=== PATIENT | female | born 1965 | race Caucasian/White ===

== ENCOUNTER 2021-05-15 17:15 | Emergency (ER) | payer MEDICARE ==
--- NOTE | 2021-05-15 18:10 | EDM.PDOC ---
ED HPI GENERAL MEDICAL PROBLEM - General Chief Complaint: General Stated Complaint: I & R CRITIAL HIGH Time Seen by Provider: 05/15/21 18:00 Source of Information: Reports: Patient History Limitations: Reports: No Limitations - History of Present Illness INITIAL COMMENTS - FREE TEXT/NARRATIVE: 55-year-old female with chronic anticoagulation, she has been on Coumadin for 33 years presents with a very high pro time of over 100 seconds. She has been on Bactrim DS for the last 5 days for UTI, symptoms have resolved. She takes 15 mg of Coumadin daily and checks her own pro time. Because of the antibiotic, she checked her pro time this morning and it was high. She went into the clinic and it was confirmed so they sent her to the emergency room. She has some mild stomach discomfort, a mild headache but no bruising increased bruising, hematuria, nosebleeds or other hemorrhage issues at this time. No recent trauma. She takes her Coumadin at 4 to 5:00 in the afternoon, she has not taken it today. Onset: Unknown/Unsure Associated Symptoms: Reports: Headaches (Mild diffuse headache), Other (Mild generalized abdominal discomfort). Denies: Chest Pain, Cough, Diaphoresis, Loss of Appetite, Malaise, Nausea/Vomiting, Shortness of Breath - Related Data Allergies Allergy/AdvReac Type Severity Reaction Status Date / Time acetaminophen [From Vicodin] AdvReac Headache Verified 05/15/21 17:30 hydrocodone [From Vicodin] AdvReac Headache Verified 05/15/21 17:30 oxycodone [From Percocet] AdvReac Headache Verified 05/15/21 17:30 Home Meds: Home Meds Acetaminophen 500 mg PO ASDIRECTED 05/15/21 [History] Amoxicillin 500 mg PO ASDIRECTED 05/15/21 [History] Baclofen 10 mg PO DAILY 05/15/21 [History] Celecoxib [CeleBREX] 200 mg PO DAILY 05/15/21 [History] Citalopram Hydrobromide [Celexa] 20 mg PO DAILY 05/15/21 [History] Cyanocobalamin (Vitamin B-12) [B-12] 1,000 mcg PO DAILY 05/15/21 [History] Enoxaparin [Lovenox] 80 mg SUBCUT DAILY 05/15/21 [History] Escitalopram Oxalate [Lexapro] 20 mg PO DAILY 05/15/21 [History] Famotidine [Pepcid] 20 mg PO DAILY 05/15/21 [History] Naloxegol Oxalate [Movantik] 25 mg PO ASDIRECTED 05/15/21 [History] Nitrofurantoin Monohyd/M-Cryst [Macrobid 100 mg Capsule] 1 tab PO DAILY 05/15/21 [History] Oxybutynin [Oxybutynin ER] 10 mg PO DAILY 05/15/21 [History] Pantoprazole Sodium [Protonix] 40 mg PO DAILY 05/15/21 [History] Prucalopride Succinate [Motegrity] 2 mg PO DAILY 05/15/21 [History] Topiramate [Topamax] 50 mg PO BEDTIME 05/15/21 [History] busPIRone [Buspar] 15 mg PO ASDIRECTED 05/15/21 [History] tiZANidine HCl [Zanaflex] 4 mg PO TID 05/15/21 [History] Past Medical History HEENT History: Reports: Impaired Vision Cardiovascular History: Reports: Blood Clots/VTE/DVT, Pacemaker, Other (See Below) Genitourinary History: Reports: Other (See Below) Other Genitourinary History: has UTI is on antibiotics, has bladder stimulator that is to be removed BOOKKEEPER History: Reports: , Spontaneous Musculoskeletal History: Reports: Back Pain, Chronic Neurological History: Reports: None Psychiatric History: Reports: Anxiety, Depression Endocrine/Metabolic History: Reports: Obesity/BMI 30+ Hematologic History: Reports: Anticoagulation Therapy - Infectious Disease History Infectious Disease History: Reports: Chicken Pox - Past Surgical History Head Surgeries/Procedures: Reports: None HEENT Surgical History: Reports: None Cardiovascular Surgical History: Reports: Pacer GI Surgical History: Reports: Appendectomy, Cholecystectomy, Hernia, Abdominal Female Surgical History: Reports: Hysterectomy Endocrine Surgical History: Reports: None Neurological Surgical History: Reports: Laminectomy Musculoskeletal Surgical History: Reports: Hip Replacement, Knee Replacement Social & Family History - Tobacco Use Tobacco Use Status *Q: Current Some Day Tobacco User Years of Tobacco use: 30 Packs/Tins Daily: 0.2 Used Tobacco, but Quit: No - Caffeine Use Caffeine Use: Reports: Soda - Recreational Drug Use Recreational Drug Use: No ED ROS GENERAL - Review of Systems Review Of Systems: See Below Constitutional: Denies: Fever, Chills HEENT: Denies: Nosebleed Respiratory: Denies: Shortness of Breath, Cough Cardiovascular: Denies: Chest Pain, Palpitations Endocrine: Denies: Fatigue GI/Abdominal: Reports: Abdominal Pain. Denies: Melena, Nausea, Vomiting Skin: Reports: Bruising (A few scattered bruises but not more than typical) Neurological: Reports: Headache Psychiatric: Reports: No Symptoms ED EXAM, GENERAL - Physical Exam Exam: See Below Exam Limited By: No Limitations General Appearance: Alert, No Apparent Distress Eye Exam: Bilateral Eye: Normal Inspection (No hemorrhage) Head: Atraumatic Respiratory/Chest: No Respiratory Distress, Lungs Clear Cardiovascular: Regular Rate, Rhythm Neurological: Alert, Oriented, No Motor/Sensory Deficits Psychiatric: Normal Affect, Normal Mood Skin Exam: Warm, Dry, Other (She does have a few bruises on her anterior lower extremities) Course - Vital Signs Last Recorded V/S: Last Vital Signs Temp 97.5 F 05/15/21 17:31 Pulse 79 05/15/21 17:31 Resp 16 05/15/21 17:31 BP 105/48 L 05/15/21 17:31 Pulse Ox 97 05/15/21 17:31 - Orders/Labs/Meds Meds: Medications Discontinued Medications Generic Name Dose Route Start Last Admin Trade Name Arturo PRN Reason Stop Dose Admin Phytonadione 5 mg 05/15/21 18:10 05/15/21 18:18 Phytonadione 5 Mg Tab PO 05/15/21 18:11 5 mg ONETIME ONE Administration - Re-Assessments/Exams Free Text/Narrative Re-Assessment/Exam: 05/16/21 07:31 Patient was given 5 mg of oral vitamin K and written a prescription for 5 additional doses to be taken as needed. She is going to check her pro time daily and resume anticoagulation when she starts to return to normal therapeutic levels. She can return anytime if spontaneous bleeding occurs or if she develops other concerning symptoms. Departure - Departure Time of Disposition: 18:24 Disposition: Home, Self-Care 01 Clinical Impression: Subtherapeutic anticoagulation - Discharge Information Instructions: Bleeding Precautions When on Anticoagulant Therapy, Adult Referrals: PCP,None [Primary Care Provider] - Forms: ED Department Discharge Care Plan Goals: Check your pro time daily and avoid any further Coumadin until your INR becomes closer to therapeutic and avoid any further doses of Bactrim. Repeat 5 mg of vitamin K daily if necessary. Return to the emergency room at any time if you develop increased symptoms such as abdominal pain or headache, spontaneous bleeding or other concerns. Sepsis Event Note (ED) - Evaluation Sepsis Screening Result: No Definite Risk
[2021-05-15] MEDS: Phytonadione 5 MG Tab PO ONE (18:18)
== END 2021-05-15 18:24 | disposition home or self-care (01) ==
LOC: JP.ED 17:15
DX: R79.1 Abnormal coagulation profile (principal); M79.81 Nontraumatic hematoma of soft tissue; E66.9 Obesity, unspecified; Z68.31 Body mass index [BMI] 31.0-31.9, adult; Z72.0 Tobacco use; Z88.6 Allergy status to analgesic agent; Z88.5 Allergy status to narcotic agent; Z79.01 Long term (current) use of anticoagulants; Z79.899 Other long term (current) drug therapy
CPT/HCPCS: 99283; A9270

== ENCOUNTER → 2021-05-15 | Emergency (ER) | payer MEDICARE, OTHER | LOC: JP.ED 13:52 | DX: Z53.21 Procedure and treatment not carried out due to patient leaving prior to being seen by health care provider (principal) ==